=== PATIENT | female | born 1950 | race Caucasian/White ===

== ENCOUNTER 2024-06-29 14:08 | Outpatient (CLI) | payer MEDICARE, OTHER | END 2024-06-29 14:09 | disposition home or self-care (01) | LOC: CSHMRI 14:08 | PROVIDERS: ATTEND Student in an Organized Health Care Education/Training Program | DX: M47.12 Other spondylosis with myelopathy, cervical region (principal) | CPT/HCPCS: 72141 ==

== ENCOUNTER 2025-04-22 10:09 | Outpatient (CLI) | payer MEDICARE ==
[2025-04-22 11:16] LABS: Estimated GFR - POC 52.0
[2025-04-22] MEDS ORDERED: Iopamidol 300 61% 100 ML VIAL FS ONE (12:26)
== END 2025-04-22 10:10 | disposition home or self-care (01) ==
LOC: CSHCT 10:09
PROVIDERS: ATTEND Family Medicine
DX: R59.0 Localized enlarged lymph nodes (principal); M35.00 Sjogren syndrome, unspecified; R93.3 Abnormal findings on diagnostic imaging of other parts of digestive tract
CPT/HCPCS: 70492; Q9967